=== PATIENT | male | born 1970 | race Caucasian/White ===

== ENCOUNTER 2019-07-22 19:01 | Emergency (ER) | payer BC, SELFPAY ==
[2019-07-22 19:16] VITALS: BP 129/74; PULSE 102; RESP 16; TEMP 36.4; O2SAT 98
--- NOTE | 2019-07-22 19:16 | ED.SKABFB ---
HPI - Skin/Abscess/Foreign Bdy General Chief complaint: Skin/Abscess/Foreign Body Stated complaint: Nail left foot Time Seen by Provider: 07/22/19 19:16 Source: patient and RN notes reviewed History of Present Illness HPI narrative: Patient is a 49-year-old male that presents to the urgent care with complaints of a puncture wound of an old nail, and an old board, to the left foot. Patient states that he needs to be updated on his tetanus shot. States that the nail was removed in its entirety. Patient denies any other injuries. States that he was wearing a shoe and the nail did go through the bottom of the shoe. No other acute complaints. No acute distress noted. Patient read the plan of care. Related Data Home Medications Medication Instructions Recorded Confirmed esomeprazole magnesium [Nexium] 20 mg PO DAILY 07/22/19 07/22/19 Allergies Allergy/AdvReac Type Severity Reaction Status Date / Time No Known Allergies Allergy Verified 07/22/19 19:19 Review of Systems Review of Systems: Narrative: CONSTITUTIONAL: Denies fever, chills, or sweats. EYES: Denies visual changes, redness, or discharge. ENT: Denies rhinorrhea, congestion, sore throat, or otalgia. CARDIOVASCULAR: Denies chest pain, palpitations, or edema. RESPIRATORY: Denies cough or dyspnea. GASTROINTESTINAL: Denies abdominal pain, nausea, vomiting, or diarrhea. GENITOURINARY: Denies dysuria or hematuria. SKIN: Reports of a puncture wound to the left foot MUSCULOSKELETAL: Denies back pain, joint pain, or myalgia. NEUROLOGIC: Denies headache, numbness, or weakness. All other systems reviewed are negative, except as documented in HPI. PMFSH Comments At the time of my signature, I reviewed and agree with the nursing past medical, surgical, social, and family history. There is no relevant family history pertinent to the patient complaint. Exam Narrative: Exam Narrative: GENERAL: This is a well-nourished, well-developed patient, in no apparent distress. HEAD: normocephalic, atraumatic. EYES: PERRL. Sclera clear/white. Vision is grossly intact. EARS: External ears normal NOSE: External nose normal with no obvious nasal discharge THROAT: Mucous membranes moist NECK: Neck supple CARDIOVASCULAR: Regular rate SKIN: Pinpoint puncture wound noted to the plantar aspect/ball of the left great toe/foot NEURO: awake, alert, and oriented to person, place and time. There were no obvious focal neurologic abnormalities. EXTREMITIES: No clubbing, cyanosis, or edema. Course Vital Signs Vital signs: Vital Signs Temperature 97.5 F L 07/22/19 19:16 Pulse Rate 102 H 07/22/19 19:16 Respiratory Rate 16 07/22/19 19:16 Blood Pressure 129/74 07/22/19 19:16 Pulse Oximetry 98 07/22/19 19:16 Temperature 97.5 F L 07/22/19 19:16 Pulse Rate 102 H 07/22/19 19:16 Respiratory Rate 16 07/22/19 19:16 Blood Pressure 129/74 07/22/19 19:16 Pulse Oximetry 98 07/22/19 19:16 Reviewed MDM - Skin/Abscess/Foreign Bdy MDM Narrative Medical decision making narrative: Advised patient to soak the foot twice a day with plain Dial soap and warm water for at least the next 3 days. Be aware of signs and symptoms of infection such as increased redness, swelling, fever, chills, pain to the area. You are now up-to-date on your tetanus shot. Be sure to keep the puncture site clean and free of debris. Wear a supportive shoe. May cushion if necessary, with gauze. Follow-up with your PCP within 2 to 5 days if her worsening symptoms or failure to improve. Differential Diagnosis Differential diagnosis: Likely abscess of skin or subcutaneous tissue, urticaria and cellulitis Critical Care Time Critical Care Time Critical Care Time: No Discharge Plan Discharge Clinical Impression: Puncture wound Patient Disposition: Home, Self-Care Condition: Stable Instructions: Antibiotic Form, Puncture Wound (DC) Additional Instructions: Advised patient to soak the foot twice
[2019-07-22] MEDS: TETANUS,DIPHTHERIA,AC PERTUSSIS ADULT 0.5 ML (ADACEL) IM (19:22)
== END 2019-07-22 19:39 | disposition home or self-care (01) ==
PROVIDERS: Emergency Provider Nurse Practitioner Family
DX: S91.332A Puncture wound without foreign body, left foot, initial encounter (principal); W45.0XXA Nail entering through skin, initial encounter; Z23 Encounter for immunization
CPT/HCPCS: 90471; 90715; 99212; G0463

== ENCOUNTER → 2020-09-02 12:20 | Outpatient (CLI) | payer BC, SELFPAY ==
--- NOTE | ~2020-09-02 | MR_ITS ---
EXAMINATION: MR knee RT wo con DATE: 09/02/2020 13:03 INDICATION: Acute medial meniscal tear of the right knee post injury 2 months prior presenting with w orsening generalized right knee pain. TECHNIQUE: Magnetic resonance imaging (MRI) of the right knee was performed without intravenous contr ast. Sequences included coronal PD-weighted FSE, coronal PD-weighted FS FSE, sagittal T2-weighted FS E, sagittal PD-weighted FS FSE and axial PD weighted fat saturated FSE. COMPARISON: 11/04/2018 FINDINGS: Medial compartment: Full-thickness radial tear near the posterior root at the lateral side of the posterior horn of the m edial meniscus. Medial extrusion of the medial meniscal body with approximately 7 mm separation of th e posterior horn tear margins. There is deep chondral ulceration with mild underlying subarticular ed jt along the medial half of the anterior weightbearing medial femoral condyle and juxtaposed anterom edial aspect of the medial tibial plateau. This is progressed since the prior study particularly at t he anterior weightbearing medial femoral condyle. Less severe partial thickness cartilage loss with s mooth chondral surface regularity at the lateral sides of the anterior weightbearing medial femoral c ondyle and medial tibial plateau. Lateral compartment: Lateral meniscus is normal. Deep chondral fissure without degenerative subchondral changes at the med ial side of the lateral tibial plateau extending onto the shoulder the intercondylar eminence which i s new since the prior study. Partial-thickness cartilage loss with relatively smooth chondral surface along the lateral side of the posterior weightbearing lateral femoral condyle. Patellofemoral compartment: Deep chondral fissuring without degenerative subchondral changes at the central aspect of the patella r apical ridge, medial side of the lateral patellar facet as well as at the medial patellar facet. Un changed tube chondral fissuring at the caudal aspect of the trochlear groove and inferolateral aspect of the medial trochlea. Ligaments and tendons: Anterior and posterior cruciate ligaments are normal. The medial collateral ligament and fibular paul ateral ligament complex are normal. Mild distal quadriceps tendinopathy with small amount of enthesop athic ossification at the patellar insertion. Patellar tendon is normal. The visualized medial and la teral hamstring tendons as well as the iliotibial band are normal. Fluid: Physiologic amount of fluid in the joint space. No loose osteochondral bodies identified. Osseous/other: Normal marrow signal aside from the previously noted minimal degenerative subarticular changes. No fr acture or pathologic marrow replacing process. There is low signal intensity scarring at the medial s arcelia of Hoffa's fat pad in the region of a prior multilobulated ganglion cyst. IMPRESSION: 1. New full-thickness radial tear near the posterior root of the posterior horn of the medial meniscu s. 2. 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 Reviewed, dictated and finalized at location A. IMPRESSION: 1. New full-thickness radial tear near the posterior root of the posterior horn of the medial meniscus. 2. Mild tricompartmental osteoarthritis with regions of moderate high-grade cho ndral malacia in all 3 compartments with interval progression in the medial com partment and at the lateral tibial plateau.
== END ==
DX: S83.241A Other tear of medial meniscus, current injury, right knee, initial encounter (principal); M17.12 Unilateral primary osteoarthritis, left knee
CPT/HCPCS: 73721